=== PATIENT | male | born 1985 | race Caucasian/White ===

== ENCOUNTER 2019-01-03 20:48 | Emergency (ER) | payer OTHER | END 2019-01-04 00:26 | disposition home or self-care (01) | LOC: FTE 01-04 00:26 | DX: S01.21XA Laceration without foreign body of nose, initial encounter (principal); F17.210 Nicotine dependence, cigarettes, uncomplicated; W22.8XXA Striking against or struck by other objects, initial encounter; Y92.9 Unspecified place or not applicable | CPT/HCPCS: 12011; 99282-25 ==